=== PATIENT | male | born 1945 | race Caucasian/White ===

== ENCOUNTER 2025-05-27 11:09 | Outpatient (CLI) | payer MEDICARE, BC | END 2025-05-27 11:10 | disposition home or self-care (01) | LOC: CSHWCC 11:09 | PROVIDERS: ATTEND Nurse Practitioner Family | DX: I87.331 Chronic venous hypertension (idiopathic) with ulcer and inflammation of right lower extremity (principal); E11.622 Type 2 diabetes mellitus with other skin ulcer; L97.812 Non-pressure chronic ulcer of other part of right lower leg with fat layer exposed; E11.51 Type 2 diabetes mellitus with diabetic peripheral angiopathy without gangrene; C44.702 Unspecified malignant neoplasm of skin of right lower limb, including hip; I50.22 Chronic systolic (congestive) heart failure; L59.8 Other specified disorders of the skin and subcutaneous tissue related to radiation | CPT/HCPCS: 11042 ==

== ENCOUNTER 2025-06-23 11:56 | Outpatient (CLI) | payer MEDICARE, BC | END 2025-06-23 11:57 | disposition home or self-care (01) | LOC: CSHWCC 11:56 | PROVIDERS: ATTEND Nurse Practitioner Family | DX: I87.331 Chronic venous hypertension (idiopathic) with ulcer and inflammation of right lower extremity (principal); E11.622 Type 2 diabetes mellitus with other skin ulcer; L97.812 Non-pressure chronic ulcer of other part of right lower leg with fat layer exposed; E11.51 Type 2 diabetes mellitus with diabetic peripheral angiopathy without gangrene; C44.702 Unspecified malignant neoplasm of skin of right lower limb, including hip; I50.22 Chronic systolic (congestive) heart failure; L59.8 Other specified disorders of the skin and subcutaneous tissue related to radiation | CPT/HCPCS: 11042 ==

== ENCOUNTER 2025-06-29 10:56 | Outpatient (CLI) | payer MEDICARE, BC | END 2025-06-29 10:57 | disposition home or self-care (01) | LOC: CSHWCC 10:56 | PROVIDERS: ATTEND Nurse Practitioner Family | DX: I87.331 Chronic venous hypertension (idiopathic) with ulcer and inflammation of right lower extremity (principal); E11.622 Type 2 diabetes mellitus with other skin ulcer; L97.812 Non-pressure chronic ulcer of other part of right lower leg with fat layer exposed; E11.51 Type 2 diabetes mellitus with diabetic peripheral angiopathy without gangrene; I50.22 Chronic systolic (congestive) heart failure; C44.702 Unspecified malignant neoplasm of skin of right lower limb, including hip; L59.8 Other specified disorders of the skin and subcutaneous tissue related to radiation | CPT/HCPCS: 11042 ==